=== PATIENT | female | born 1995 | race American Indian/Alaskan Native ===

== ENCOUNTER 2022-09-07 07:14 | Emergency (ER) | payer MEDICAID ==
[2022-09-07] MEDS ORDERED: Alum Hydroxide/Mag Hydroxide 15 ML, Lidocaine 2% 15 ML PO ONE ×2 (07:50)
[2022-09-07] MEDS ORDERED: Sucralfate 1 GM Tab PO ONE (07:50)
[2022-09-07] MEDS ORDERED: Pantoprazole 40 MG Tab.CR PO STA (09:02)
[2022-09-07 09:10] LABS: BASOPHILS PERCENT AUTO 0.3 % (0.2-1.5); EOSINOPHILS ABSOLUTE AUTO 0.1 x10-3/uL (0.0-0.8); EOSINOPHILS PERCENT AUTO 1.5 % (0.6-8.1); HEMATOCRIT 40.5 % (34.2-48.2); HEMOGLOBIN 13.3 g/dL (11.4-15.5); LYMPHOCYTES ABSOLUTE AUTO 1.8 x10-3/uL (1.0-4.4); LYMPHOCYTES PERCENT AUTO 19.7 % (18.4-52.1); MEAN CORPUSCULAR HEMOGLOBIN 28.2 pg (23.9-33.9); MEAN CORPUSCULAR HGB CONC 32.9 g/dL (31.9-34.8); MEAN CORPUSCULAR VOLUME 85.6 fL (76.7-100.5); MEAN PLATELET VOLUME 8.7 fL (7.1-12.4); MONOCYTES ABSOLUTE AUTO 0.5 x10-3/uL (0.3-1.0); NEUTROPHILS ABSOLUTE AUTO 6.7 x10-3/uL (1.5-6.3); NEUTROPHILS PERCENT AUTO 72.5 % (30.8-76.2); PLATELET COUNT,PLT 215 x10(3)uL (151-488); RED BLOOD CELL COUNT 4.73 x10(6)uL (3.60-5.20); RED CELL DISTRIBUTION WIDTH 14.8 % (12.3-16.5); WHITE BLOOD CELL COUNT,WBC 9.2 x10-3/uL (3.0-10.3)
[2022-09-07 09:18] LABS: BLOOD UREA NITROGEN,BUN 16 mg/dL (7-18); BUN/CREATININE RATIO 17.8 (9-20); CALCIUM 9.3 mg/dL (8.6-10.2); CARBON DIOXIDE,CO2 30 mmol/L (21-32); CHLORIDE,CL 105 mmol/L (100-110); CREATININE 0.9 mg/dL (0.55-1.02); EST CRCL DRUG DOSING (CG) 79.04 mL/min; ESTIMATED GFR 91 mL/min (>60); GLUCOSE RANDOM 109 mg/dL (80-116); POTASSIUM,K 4.4 mmol/L (3.5-5.3); SODIUM,NA 139 mmol/L (135-145)
[2022-09-07 09:23] LABS: A/G RATIO 1.1; ALANINE AMINOTRANSFERASE,ALT 15 U/L (12-36); ALBUMIN 3.7 g/dL (3.5-5.2); ALKALINE PHOSPHATASE 79 IU/L (56-112); ASPARTATE AMNIOTRANSFERASE,AST 13 IU/L (5-25); BILIRUBIN TOTAL 0.2 mg/dL (0.1-1.3)
== END 2022-09-07 10:00 | disposition home or self-care (01) ==
LOC: FB.ED 07:14
DX: R10.11 Right upper quadrant pain (principal); E66.9 Obesity, unspecified; Z68.35 Body mass index [BMI] 35.0-35.9, adult; Z87.19 Personal history of other diseases of the digestive system; Z79.899 Other long term (current) drug therapy
CPT/HCPCS: 36415; 73140; 80053; 85025; 86140; 99284; A9270

== ENCOUNTER 2023-05-01 09:00 | Day surgery (SDC) | payer MEDICAID ==
[~2023-05-01 09:00] MED LIST: Lactated Ringers 1,000 ML IV SCH; Sodium Chloride 0.9% 10 ML Syringe FLUSH PRN
[2023-05-01] MEDS ORDERED: Rocuronium 100 MG/10 ML MDV IV ONE (09:01)
[2023-05-01] MEDS ORDERED: hydrALAZINE 20 MG/ML SDV IV ONE (09:01)
[2023-05-01] MEDS ORDERED: Ondansetron 4 MG/2 ML SDV IVPUSH ONE (09:01)
[2023-05-01] MEDS ORDERED: HYDROmorphone 2 MG/ML SDV IV ONE (09:01)
[2023-05-01] MEDS ORDERED: Sugammadex Sodium 200 MG/2 ML VIAL IV ONE (09:01)
[2023-05-01] MEDS ORDERED: fentaNYL 100 MCG/2 ML SDV IV ONE (09:01)
[2023-05-01] MEDS ORDERED: Midazolam 1 MG/ML 2 ML SDV IV ONE (09:01)
[2023-05-01] MEDS ORDERED: Propofol 200 MG/20 ML SDV IV ONE (09:01)
[2023-05-01] MEDS ORDERED: Labetalol 100 MG/20 ML MDV IV ONE (09:01)
[2023-05-01] MEDS ORDERED: Albuterol 6.7 GM Inhaler INH ONE (09:01)
[2023-05-01] MEDS ORDERED: Lactated Ringers 1,000 ML IV ONE (09:01)
[2023-05-01] MEDS ORDERED: ceFAZolin 2 GM Vial IVPUSH ONE (10:15)
[2023-05-01] MEDS ORDERED: Bupivacaine 0.5%/EPINEPHrine 1:200,000 10 ML SDV INJECT ONE (11:15)
[2023-05-01] MEDS ORDERED: Acetaminophen/HYDROcodone 325-5 MG Tab PO ONE (12:59)
== END 2023-05-01 14:24 | disposition home or self-care (01) ==
LOC: FB.SDS 09:00
PROVIDERS: ATTEND Surgery
DX: K80.12 Calculus of gallbladder with acute and chronic cholecystitis without obstruction (principal); F17.210 Nicotine dependence, cigarettes, uncomplicated
CPT/HCPCS: 00790; 81025; 88304; A9270-GY; J0360; J0690; J1170; J1921; J2250; J2405; J2704; J3010; J3490; J7120

== ENCOUNTER 2024-05-30 20:32 | Emergency (ER) | payer OTHER, MEDICAID | END 2024-05-30 21:30 | LOC: FB.ED 20:32 | DX: F10.120 Alcohol abuse with intoxication, uncomplicated (principal); Z72.811 Adult antisocial behavior; Y90.9 Presence of alcohol in blood, level not specified | CPT/HCPCS: 99283 ==